=== PATIENT | male | born 1980 | race Caucasian/White ===

== ENCOUNTER 2024-09-25 08:31 | Emergency (ER) | payer BC ==
[2024-09-25] MEDS ORDERED: Ketorolac Tromethamine 30 MG (1 mL) VIAL ONE (08:51)
== END 2024-09-25 09:33 | disposition home or self-care (01) ==
LOC: CSHERS 08:31
DX: S46.212A Strain of muscle, fascia and tendon of other parts of biceps, left arm, initial encounter (principal); X50.0XXA Overexertion from strenuous movement or load, initial encounter
CPT/HCPCS: 96372; 99283; J1885

== ENCOUNTER 2024-10-14 16:00 | Outpatient (CLI) | payer OTHER | END 2024-10-14 16:01 | disposition home or self-care (01) | LOC: CSHMRI 16:00 | PROVIDERS: ATTEND Family Medicine | DX: S59.902A Unspecified injury of left elbow, initial encounter (principal); S46.212A Strain of muscle, fascia and tendon of other parts of biceps, left arm, initial encounter ==